=== PATIENT | female | born 1950 | race Caucasian/White ===

== ENCOUNTER 2019-03-04 13:47 | Inpatient (IN) | payer BC, OTHER ==
[2019-03-04] MEDS ORDERED: Senna TAB 8.6 mg* TAB PO PRN (16:45)
[2019-03-04] MEDS: oxyCODONE/Acetamin 5/325 MG* TAB PO PRN ×2 (17:35→21:31)
[2019-03-04] MEDS: Docusate CAP* 100 MG PO SCH (19:34)
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
[2019-03-04] MEDS: Enoxaparin(*) 40 MG/0.4 ML SYR SUBCUT SCH (21:32)
[2019-03-05] MEDS: Acetaminophen TAB* 325 MG PO PRN ×2 (00:14→13:09)
[2019-03-05] MEDS: oxyCODONE/Acetamin 5/325 MG* TAB PO PRN ×4 (02:19→15:10)
[2019-03-05 05:35] LABS: Hematocrit 31 % (35-47); Hemoglobin 10.5 g/dL (12.0-16.0); Mean Corpuscular HGB Conc 34 g/dL (31-36); Mean Corpuscular Hemoglobin 30 pg (27-31); Mean Corpuscular Volume 89 fL (80-97); Mean Platelet Volume 8.1 fL (7.4-10.4); Platelet Count 246 10^3/uL (150-450); Red Blood Count 3.51 10^6 /uL (3.70-4.87); Red Cell Distribution Width 15 % (10-15); White Blood Count 8.1 10^3/uL (3.5-10.8)
[2019-03-05 05:55] LABS: Albumin 3.7 g/dL (3.2-5.2); Albumin/Globulin Ratio 1.5 (1-3); BUN/Creatinine Ratio 26.9 (8-20); EGFR African American 89.4 (>60); EGFR Non-African American 73.9 (>60); Globulin 2.5 g/dL (2-4); Potassium 4.2 mmol/L (3.5-5.0); Total Bilirubin 0.8 mg/dL (0.2-1.0); Total Protein 6.2 g/dL (6.4-8.9)
[2019-03-05 07:01] LABS: ABS Basophils 0.1 10^3/ul (0-0.2); ABS Eosinophils 0.1 10^3/ul (0-0.6); ABS Lymphocytes 1.2 10^3/ul (1.0-4.8); ABS Monocytes 0.8 10^3/ul (0-0.8); ABS Neutrophils 5.8 10^3/ul (1.5-7.7); Eosinophil % 1.4 %; Lymphocyte % 15.2 %
[2019-03-05] MEDS: BuPROPion XL* 300 MG TAB.XL PO SCH (09:30)
[2019-03-05] MEDS: FLUoxetine CAP* 20 MG PO SCH (09:30)
[2019-03-05] MEDS: Docusate CAP* 100 MG PO SCH ×2 (09:31→19:59)
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
[2019-03-05] MEDS ORDERED: oxyCODONE TAB* 5 MG TAB PO PRN (19:32)
[2019-03-05] MEDS: oxyCODONE TAB* 5 MG TAB PO PRN ×2 (19:58→23:51)
[2019-03-05] MEDS: Enoxaparin(*) 40 MG/0.4 ML SYR SUBCUT SCH (19:59)
[2019-03-06] MEDS: oxyCODONE TAB* 5 MG TAB PO PRN ×4 (04:13→19:54)
[2019-03-06] MEDS: Docusate CAP* 100 MG PO SCH ×2 (09:36→19:59)
[2019-03-06] MEDS: FLUoxetine CAP* 20 MG PO SCH (09:36)
[2019-03-06] MEDS: BuPROPion XL* 300 MG TAB.XL PO SCH (09:36)
[2019-03-06] MEDS: Acetaminophen TAB* 325 MG PO PRN ×2 (12:19→23:15)
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
[2019-03-06] MEDS: Enoxaparin(*) 40 MG/0.4 ML SYR SUBCUT SCH (19:58)
[2019-03-07] MEDS: oxyCODONE TAB* 5 MG TAB PO PRN ×6 (01:10→22:22)
[2019-03-07] MEDS: FLUoxetine CAP* 20 MG PO SCH (08:46)
[2019-03-07] MEDS: Acetaminophen TAB* 325 MG PO PRN ×2 (08:46→16:20)
[2019-03-07] MEDS: BuPROPion XL* 300 MG TAB.XL PO SCH (08:47)
[2019-03-07] MEDS: Docusate CAP* 100 MG PO SCH ×2 (08:48→21:54)
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
[2019-03-07] MEDS: Enoxaparin(*) 40 MG/0.4 ML SYR SUBCUT SCH (21:53)
[2019-03-08] MEDS: oxyCODONE TAB* 5 MG TAB PO PRN ×5 (02:21→20:53)
[2019-03-08] MEDS: Acetaminophen TAB* 325 MG PO PRN ×2 (06:18→14:38)
[2019-03-08] MEDS: Docusate CAP* 100 MG PO SCH ×2 (08:19→20:54)
[2019-03-08] MEDS: BuPROPion XL* 300 MG TAB.XL PO SCH (08:21)
[2019-03-08] MEDS: FLUoxetine CAP* 20 MG PO SCH (08:26)
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
[2019-03-08] MEDS: Enoxaparin(*) 40 MG/0.4 ML SYR SUBCUT SCH (20:56)
[2019-03-09] MEDS: Acetaminophen TAB* 325 MG PO PRN ×3 (00:09→15:22)
[2019-03-09] MEDS: oxyCODONE TAB* 5 MG TAB PO PRN ×6 (01:08→21:19)
[2019-03-09] MEDS: Docusate CAP* 100 MG PO SCH ×2 (08:20→21:15)
[2019-03-09] MEDS: BuPROPion XL* 300 MG TAB.XL PO SCH (08:20)
[2019-03-09] MEDS: FLUoxetine CAP* 20 MG PO SCH (08:21)
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
[2019-03-09] MEDS: Polyethylene Glycol 3350* 17 GM PACKET PO PRN (12:00)
[2019-03-09] MEDS: Senna TAB 8.6 mg* TAB PO SCH (21:16)
[2019-03-09] MEDS: Enoxaparin(*) 40 MG/0.4 ML SYR SUBCUT SCH (21:24)
[2019-03-09] MEDS: oxyCODONE SR TAB(*) 15 MG TAB.SR PO SCH (22:01)
[2019-03-10] MEDS: oxyCODONE TAB* 5 MG TAB PO PRN ×7 (00:13→20:15)
[2019-03-10] MEDS: Acetaminophen TAB* 325 MG PO PRN ×2 (05:11→18:19)
[2019-03-10] MEDS: oxyCODONE SR TAB(*) 15 MG TAB.SR PO SCH ×2 (09:12→21:46)
[2019-03-10] MEDS: BuPROPion XL* 300 MG TAB.XL PO SCH (09:12)
[2019-03-10] MEDS: FLUoxetine CAP* 20 MG PO SCH (09:12)
[2019-03-10] MEDS: Docusate CAP* 100 MG PO SCH ×2 (09:12→21:47)
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
[2019-03-10] MEDS ORDERED: Al Hydrox/Mg Hydrox/Simet LIQ* 30 ML UDC PO PRN (13:18)
[2019-03-10] MEDS: Calcium Carbonate CHEW TAB* 500 MG (TUMS) PO PRN (13:36)
[2019-03-10] MEDS: Enoxaparin(*) 40 MG/0.4 ML SYR SUBCUT SCH (21:45)
[2019-03-10] MEDS: Senna TAB 8.6 mg* TAB PO SCH (21:47)
[2019-03-11] MEDS: oxyCODONE TAB* 5 MG TAB PO PRN ×6 (03:00→22:33)
[2019-03-11] MEDS: oxyCODONE SR TAB(*) 15 MG TAB.SR PO SCH ×2 (08:45→20:50)
[2019-03-11] MEDS: BuPROPion XL* 300 MG TAB.XL PO SCH (08:45)
[2019-03-11] MEDS: FLUoxetine CAP* 20 MG PO SCH (08:45)
[2019-03-11] MEDS: Docusate CAP* 100 MG PO SCH ×2 (08:45→20:50)
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
[2019-03-11] MEDS: Acetaminophen TAB* 325 MG PO PRN (16:06)
[2019-03-11] MEDS: Polyethylene Glycol 3350* 17 GM PACKET PO PRN (16:27)
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
[2019-03-11] MEDS: Senna TAB 8.6 mg* TAB PO SCH (20:50)
[2019-03-11] MEDS: Enoxaparin(*) 40 MG/0.4 ML SYR SUBCUT SCH (20:50)
[2019-03-12] MEDS: oxyCODONE TAB* 5 MG TAB PO PRN ×6 (02:10→20:17)
[2019-03-12 04:47] LABS: ABS Basophils 0.1 10^3/ul (0-0.2); ABS Eosinophils 0.1 10^3/ul (0-0.6); ABS Monocytes 0.5 10^3/ul (0-0.8); ABS Neutrophils 2.9 10^3/ul (1.5-7.7); Eosinophil % 1.8 %; Hematocrit 29 % (35-47); Lymphocyte % 21.8 %; Mean Corpuscular HGB Conc 35 g/dL (31-36); Mean Corpuscular Hemoglobin 31 pg (27-31); Mean Corpuscular Volume 90 fL (80-97); Mean Platelet Volume 7.6 fL (7.4-10.4); Nucleated Red Blood Cells % 0.1; Platelet Count 263 10^3/uL (150-450); Red Blood Count 3.21 10^6 /uL (3.70-4.87); Red Cell Distribution Width 16 % (10-15); White Blood Count 4.4 10^3/uL (3.5-10.8)
[2019-03-12 05:07] LABS: Albumin 3.4 g/dL (3.2-5.2); Albumin/Globulin Ratio 1.4 (1-3); BUN/Creatinine Ratio 22.2 (8-20); Calcium 8.7 mg/dL (8.6-10.3); EGFR African American 98.1 (>60); Globulin 2.5 g/dL (2-4); Potassium 4.5 mmol/L (3.5-5.0); Total Bilirubin 0.7 mg/dL (0.2-1.0); Total Protein 5.9 g/dL (6.4-8.9)
[2019-03-12] MEDS: Docusate CAP* 100 MG PO SCH ×2 (08:39→20:16)
[2019-03-12] MEDS: oxyCODONE SR TAB(*) 15 MG TAB.SR PO SCH (08:39)
[2019-03-12] MEDS: FLUoxetine CAP* 20 MG PO SCH (08:39)
[2019-03-12] MEDS: Methocarbamol TAB* 500 MG PO PRN ×2 (08:40→14:41)
[2019-03-12] MEDS: BuPROPion XL* 300 MG TAB.XL PO SCH (09:27)
[2019-03-12] MEDS: Senna TAB 8.6 mg* TAB PO SCH (20:17)
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
[2019-03-12] MEDS: oxyCODONE SR TAB(*) 20 MG TAB.SR PO SCH (20:18)
[2019-03-12] MEDS: Nortriptyline CAP* 10 MG PO SCH (20:19)
[2019-03-12] MEDS: Enoxaparin(*) 40 MG/0.4 ML SYR SUBCUT SCH (20:20)
[2019-03-13] MEDS: oxyCODONE TAB* 5 MG TAB PO PRN ×4 (01:56→11:52)
[2019-03-13] MEDS: oxyCODONE SR TAB(*) 20 MG TAB.SR PO SCH ×2 (09:18→21:06)
[2019-03-13] MEDS: BuPROPion XL* 300 MG TAB.XL PO SCH (09:18)
[2019-03-13] MEDS: FLUoxetine CAP* 20 MG PO SCH (09:18)
[2019-03-13] MEDS: Docusate CAP* 100 MG PO SCH ×2 (09:18→21:06)
[2019-03-13] MEDS: Methocarbamol TAB* 500 MG PO PRN ×2 (11:10→21:25)
[2019-03-13] MEDS: Acetaminophen TAB* 325 MG PO PRN (11:53)
[2019-03-13] MEDS ORDERED: Magnesium Hydroxide LIQ* 30 ML UDC PO ONE (21:00)
[2019-03-13] MEDS ORDERED: Magnesium Hydroxide LIQ* 30 ML UDC PO PRN (21:00)
[2019-03-13] MEDS: Nortriptyline CAP* 10 MG PO SCH (21:06)
[2019-03-13] MEDS: Senna TAB 8.6 mg* TAB PO SCH (21:06)
[2019-03-13] MEDS: Enoxaparin(*) 40 MG/0.4 ML SYR SUBCUT SCH (21:07)
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
[2019-03-13] MEDS: Cephalexin CAP* 500 MG PO SCH (21:25)
[2019-03-14] MEDS: Cephalexin CAP* 500 MG PO SCH ×3 (03:48→20:57)
[2019-03-14] MEDS: oxyCODONE TAB* 5 MG TAB PO PRN ×6 (03:48→20:57)
[2019-03-14] MEDS: Acetaminophen TAB* 325 MG PO PRN (07:42)
[2019-03-14] MEDS: Docusate CAP* 100 MG PO SCH ×2 (10:06→20:57)
[2019-03-14] MEDS: BuPROPion XL* 300 MG TAB.XL PO SCH (10:06)
[2019-03-14] MEDS: oxyCODONE SR TAB(*) 20 MG TAB.SR PO SCH ×2 (10:07→20:59)
[2019-03-14] MEDS: FLUoxetine CAP* 20 MG PO SCH (10:08)
[2019-03-14] MEDS: Polyethylene Glycol 3350* 17 GM PACKET PO SCH (10:08)
[2019-03-14] MEDS: Methocarbamol TAB* 500 MG PO PRN (16:18)
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
[2019-03-14] MEDS ORDERED: Sodium Phosphate ADULT ENEMA* 118 ml bottle PR PRN (19:03)
[2019-03-14] MEDS: Nortriptyline CAP* 10 MG PO SCH (20:57)
[2019-03-14] MEDS: Senna TAB 8.6 mg* TAB PO SCH (20:58)
[2019-03-14] MEDS: Enoxaparin(*) 40 MG/0.4 ML SYR SUBCUT SCH (21:00)
[2019-03-15] MEDS: oxyCODONE TAB* 5 MG TAB PO PRN ×5 (02:54→21:30)
[2019-03-15] MEDS: Cephalexin CAP* 500 MG PO SCH ×3 (06:12→21:23)
[2019-03-15] MEDS: BuPROPion XL* 300 MG TAB.XL PO SCH (09:25)
[2019-03-15] MEDS: FLUoxetine CAP* 20 MG PO SCH (09:25)
[2019-03-15] MEDS: oxyCODONE SR TAB(*) 20 MG TAB.SR PO SCH ×2 (09:25→21:22)
[2019-03-15] MEDS: Polyethylene Glycol 3350* 17 GM PACKET PO SCH (09:25)
[2019-03-15] MEDS: Docusate CAP* 100 MG PO SCH ×2 (09:25→21:23)
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
[2019-03-15] MEDS: Methocarbamol TAB* 500 MG PO PRN (15:05)
[2019-03-15] MEDS: Bisacodyl SUPP* 10 MG SUPP PR PRN (17:30)
[2019-03-15] MEDS: Senna TAB 8.6 mg* TAB PO SCH (21:23)
[2019-03-15] MEDS: Nortriptyline CAP* 10 MG PO SCH (21:23)
[2019-03-15] MEDS: Enoxaparin(*) 40 MG/0.4 ML SYR SUBCUT SCH (21:23)
[2019-03-16] MEDS: oxyCODONE TAB* 5 MG TAB PO PRN ×5 (03:30→18:58)
[2019-03-16] MEDS: Cephalexin CAP* 500 MG PO SCH ×3 (04:55→21:17)
[2019-03-16] MEDS: Docusate CAP* 100 MG PO SCH ×2 (09:53→21:17)
[2019-03-16] MEDS: FLUoxetine CAP* 20 MG PO SCH (09:53)
[2019-03-16] MEDS: oxyCODONE SR TAB(*) 20 MG TAB.SR PO SCH ×2 (09:53→21:17)
[2019-03-16] MEDS: BuPROPion XL* 300 MG TAB.XL PO SCH (09:53)
[2019-03-16] MEDS: Polyethylene Glycol 3350* 17 GM PACKET PO SCH (09:54)
[2019-03-16] MEDS: Methocarbamol TAB* 500 MG PO PRN (10:00)
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
[2019-03-16] MEDS: Senna TAB 8.6 mg* TAB PO SCH (21:17)
[2019-03-16] MEDS: Enoxaparin(*) 40 MG/0.4 ML SYR SUBCUT SCH (21:17)
[2019-03-16] MEDS: Nortriptyline CAP* 10 MG PO SCH (21:17)
[2019-03-17] MEDS: oxyCODONE TAB* 5 MG TAB PO PRN ×6 (05:18→21:09)
[2019-03-17] MEDS: Cephalexin CAP* 500 MG PO SCH ×3 (05:18→20:54)
[2019-03-17] MEDS: FLUoxetine CAP* 20 MG PO SCH (08:01)
[2019-03-17] MEDS: Acetaminophen TAB* 325 MG PO PRN (08:02)
[2019-03-17] MEDS: oxyCODONE SR TAB(*) 20 MG TAB.SR PO SCH ×2 (08:03→20:58)
[2019-03-17] MEDS: Docusate CAP* 100 MG PO SCH ×2 (08:03→20:55)
[2019-03-17] MEDS: BuPROPion XL* 300 MG TAB.XL PO SCH (08:03)
[2019-03-17] MEDS: Polyethylene Glycol 3350* 17 GM PACKET PO SCH (08:08)
[2019-03-17] MEDS: Methocarbamol TAB* 500 MG PO PRN (16:50)
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
[2019-03-17] MEDS: Enoxaparin(*) 40 MG/0.4 ML SYR SUBCUT SCH (20:53)
[2019-03-17] MEDS: Nortriptyline CAP* 10 MG PO SCH (20:58)
[2019-03-17] MEDS: Senna TAB 8.6 mg* TAB PO SCH (20:58)
[2019-03-18] MEDS: Cephalexin CAP* 500 MG PO SCH ×3 (04:56→20:19)
[2019-03-18] MEDS: oxyCODONE TAB* 5 MG TAB PO PRN ×4 (04:56→19:28)
[2019-03-18] MEDS: BuPROPion XL* 300 MG TAB.XL PO SCH (08:02)
[2019-03-18] MEDS: FLUoxetine CAP* 20 MG PO SCH (08:02)
[2019-03-18] MEDS: oxyCODONE SR TAB(*) 20 MG TAB.SR PO SCH ×2 (08:02→20:19)
[2019-03-18] MEDS: Docusate CAP* 100 MG PO SCH ×2 (08:02→20:19)
[2019-03-18] MEDS: Polyethylene Glycol 3350* 17 GM PACKET PO SCH (08:04)
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
[2019-03-18] MEDS: Nortriptyline CAP* 10 MG PO SCH (20:19)
[2019-03-18] MEDS: Senna TAB 8.6 mg* TAB PO SCH (20:19)
[2019-03-18] MEDS: Enoxaparin(*) 40 MG/0.4 ML SYR SUBCUT SCH (20:19)
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
[2019-03-19] MEDS: oxyCODONE TAB* 5 MG TAB PO PRN ×3 (03:53→15:08)
[2019-03-19] MEDS: Cephalexin CAP* 500 MG PO SCH ×3 (03:54→20:38)
[2019-03-19 06:42] LABS: ABS Eosinophils 0.1 10^3/ul (0-0.6); ABS Lymphocytes 0.8 10^3/ul (1.0-4.8); ABS Monocytes 0.3 10^3/ul (0-0.8); ABS Neutrophils 1.8 10^3/ul (1.5-7.7); Eosinophil % 2.5 %; Hematocrit 30 % (35-47); Hemoglobin 10.4 g/dL (12.0-16.0); Lymphocyte % 26.3 %; Mean Corpuscular HGB Conc 34 g/dL (31-36); Mean Corpuscular Hemoglobin 31 pg (27-31); Mean Corpuscular Volume 91 fL (80-97); Nucleated Red Blood Cells % 0.1; Platelet Count 180 10^3/uL (150-450); Red Blood Count 3.35 10^6 /uL (3.70-4.87); Red Cell Distribution Width 17 % (10-15); White Blood Count 3.1 10^3/uL (3.5-10.8)
[2019-03-19 06:55] LABS: Albumin 3.4 g/dL (3.2-5.2); Albumin/Globulin Ratio 1.6 (1-3); BUN/Creatinine Ratio 22.2 (8-20); Calcium 8.7 mg/dL (8.6-10.3); EGFR African American 98.1 (>60); Globulin 2.1 g/dL (2-4); Potassium 4.2 mmol/L (3.5-5.0); Total Bilirubin 0.7 mg/dL (0.2-1.0); Total Protein 5.5 g/dL (6.4-8.9)
[2019-03-19] MEDS: Acetaminophen TAB* 325 MG PO PRN (08:07)
[2019-03-19] MEDS: Docusate CAP* 100 MG PO SCH ×2 (08:07→20:38)
[2019-03-19] MEDS: BuPROPion XL* 300 MG TAB.XL PO SCH (08:07)
[2019-03-19] MEDS: Polyethylene Glycol 3350* 17 GM PACKET PO SCH (08:08)
[2019-03-19] MEDS: oxyCODONE SR TAB(*) 20 MG TAB.SR PO SCH ×2 (08:08→20:38)
[2019-03-19] MEDS: FLUoxetine CAP* 20 MG PO SCH (08:09)
[2019-03-19] MEDS: Methocarbamol TAB* 500 MG PO PRN (12:53)
[2019-03-19] MEDS: Nortriptyline CAP* 10 MG PO SCH (20:38)
[2019-03-19] MEDS: Senna TAB 8.6 mg* TAB PO SCH (20:38)
[2019-03-19] MEDS: Enoxaparin(*) 40 MG/0.4 ML SYR SUBCUT SCH (20:38)
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
[2019-03-20] MEDS: oxyCODONE TAB* 5 MG TAB PO PRN ×6 (04:30→21:49)
[2019-03-20] MEDS: Cephalexin CAP* 500 MG PO SCH ×3 (04:30→20:58)
[2019-03-20] MEDS: Docusate CAP* 100 MG PO SCH ×2 (07:40→20:58)
[2019-03-20] MEDS: Polyethylene Glycol 3350* 17 GM PACKET PO SCH (07:40)
[2019-03-20] MEDS: FLUoxetine CAP* 20 MG PO SCH (07:40)
[2019-03-20] MEDS: BuPROPion XL* 300 MG TAB.XL PO SCH (07:41)
[2019-03-20] MEDS: oxyCODONE SR TAB(*) 20 MG TAB.SR PO SCH ×2 (07:41→20:58)
[2019-03-20] MEDS: Calcium Carbonate CHEW TAB* 500 MG (TUMS) PO PRN (08:32)
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
[2019-03-20] MEDS: Enoxaparin(*) 40 MG/0.4 ML SYR SUBCUT SCH (20:58)
[2019-03-20] MEDS: Nortriptyline CAP* 10 MG PO SCH (20:58)
[2019-03-20] MEDS: Senna TAB 8.6 mg* TAB PO SCH (20:58)
[2019-03-20] MEDS: Methocarbamol TAB* 500 MG PO PRN (21:54)
[2019-03-21] MEDS: oxyCODONE TAB* 5 MG TAB PO PRN ×3 (07:44→17:59)
[2019-03-21] MEDS: Docusate CAP* 100 MG PO SCH ×2 (07:46→20:57)
[2019-03-21] MEDS: FLUoxetine CAP* 20 MG PO SCH (07:46)
[2019-03-21] MEDS: BuPROPion XL* 300 MG TAB.XL PO SCH (07:46)
[2019-03-21] MEDS: Polyethylene Glycol 3350* 17 GM PACKET PO SCH (07:48)
[2019-03-21] MEDS: oxyCODONE SR TAB(*) 20 MG TAB.SR PO SCH ×2 (08:57→20:57)
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
[2019-03-21] MEDS: Senna TAB 8.6 mg* TAB PO SCH (20:57)
[2019-03-21] MEDS: Nortriptyline CAP* 10 MG PO SCH (20:57)
[2019-03-21] MEDS: Enoxaparin(*) 40 MG/0.4 ML SYR SUBCUT SCH (20:58)
[2019-03-22] MEDS: oxyCODONE TAB* 5 MG TAB PO PRN ×3 (06:05→19:01)
[2019-03-22] MEDS: BuPROPion XL* 300 MG TAB.XL PO SCH (10:18)
[2019-03-22] MEDS: oxyCODONE SR TAB(*) 20 MG TAB.SR PO SCH ×2 (10:19→20:40)
[2019-03-22] MEDS: FLUoxetine CAP* 20 MG PO SCH (10:19)
[2019-03-22] MEDS: Docusate CAP* 100 MG PO SCH ×2 (10:19→20:39)
[2019-03-22] MEDS: Polyethylene Glycol 3350* 17 GM PACKET PO SCH (10:20)
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
[2019-03-22] MEDS: Methocarbamol TAB* 500 MG PO PRN (14:44)
[2019-03-22] MEDS: Senna TAB 8.6 mg* TAB PO SCH (20:39)
[2019-03-22] MEDS: Nortriptyline CAP* 10 MG PO SCH (20:41)
[2019-03-22] MEDS: Enoxaparin(*) 40 MG/0.4 ML SYR SUBCUT SCH (20:41)
[2019-03-23] MEDS: oxyCODONE TAB* 5 MG TAB PO PRN ×3 (03:52→20:42)
[2019-03-23] MEDS: Polyethylene Glycol 3350* 17 GM PACKET PO SCH (08:30)
[2019-03-23] MEDS: Docusate CAP* 100 MG PO SCH (08:30)
[2019-03-23] MEDS: BuPROPion XL* 300 MG TAB.XL PO SCH (08:37)
[2019-03-23] MEDS: Methocarbamol TAB* 500 MG PO PRN ×2 (08:38→16:58)
[2019-03-23] MEDS: oxyCODONE SR TAB(*) 20 MG TAB.SR PO SCH ×2 (08:38→20:43)
[2019-03-23] MEDS: FLUoxetine CAP* 20 MG PO SCH (08:39)
[2019-03-23] MEDS ORDERED: Polyethylene Glycol 3350* 17 GM PACKET PO PRN (10:03)
[2019-03-23] MEDS ORDERED: Docusate CAP* 100 MG PO PRN (10:03)
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
[2019-03-23] MEDS: Enoxaparin(*) 40 MG/0.4 ML SYR SUBCUT SCH (20:41)
[2019-03-23] MEDS: Senna TAB 8.6 mg* TAB PO SCH (20:43)
[2019-03-23] MEDS: Nortriptyline CAP* 10 MG PO SCH (20:45)
[2019-03-24] MEDS: oxyCODONE SR TAB(*) 20 MG TAB.SR PO SCH ×2 (08:15→22:00)
[2019-03-24] MEDS: oxyCODONE TAB* 5 MG TAB PO PRN ×4 (08:16→22:04)
[2019-03-24] MEDS: BuPROPion XL* 300 MG TAB.XL PO SCH (08:16)
[2019-03-24] MEDS: FLUoxetine CAP* 20 MG PO SCH (08:16)
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
[2019-03-24] MEDS: Senna TAB 8.6 mg* TAB PO SCH (22:00)
[2019-03-24] MEDS: Enoxaparin(*) 40 MG/0.4 ML SYR SUBCUT SCH (22:00)
[2019-03-24] MEDS: Nortriptyline CAP* 10 MG PO SCH (22:00)
[2019-03-25] MEDS: oxyCODONE TAB* 5 MG TAB PO PRN ×4 (04:17→20:09)
[2019-03-25] MEDS: BuPROPion XL* 300 MG TAB.XL PO SCH (08:51)
[2019-03-25] MEDS: FLUoxetine CAP* 20 MG PO SCH (08:51)
[2019-03-25] MEDS: oxyCODONE SR TAB(*) 20 MG TAB.SR PO SCH ×2 (08:52→20:10)
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
[2019-03-25] MEDS: Bisacodyl SUPP* 10 MG SUPP PR PRN (15:13)
[2019-03-25] MEDS: Nortriptyline CAP* 10 MG PO SCH (20:09)
[2019-03-25] MEDS: Enoxaparin(*) 40 MG/0.4 ML SYR SUBCUT SCH (20:09)
[2019-03-25] MEDS: Senna TAB 8.6 mg* TAB PO SCH (20:10)
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
[2019-03-25] MEDS ORDERED: oxyCODONE TAB* 5 MG TAB PO PRN (21:16)
[2019-03-26 05:17] LABS: ABS Eosinophils 0.1 10^3/ul (0-0.6); ABS Lymphocytes 1.2 10^3/ul (1.0-4.8); ABS Monocytes 0.3 10^3/ul (0-0.8); ABS Neutrophils 1.4 10^3/ul (1.5-7.7); Eosinophil % 2.1 %; Hematocrit 29 % (35-47); Hemoglobin 9.9 g/dL (12.0-16.0); Lymphocyte % 40.9 %; Mean Corpuscular HGB Conc 34 g/dL (31-36); Mean Corpuscular Hemoglobin 31 pg (27-31); Mean Corpuscular Volume 92 fL (80-97); Mean Platelet Volume 8.4 fL (7.4-10.4); Nucleated Red Blood Cells % 0.1; Platelet Count 137 10^3/uL (150-450); Red Blood Count 3.16 10^6 /uL (3.70-4.87); Red Cell Distribution Width 17 % (10-15)
[2019-03-26 05:33] LABS: Albumin 3.3 g/dL (3.2-5.2); Albumin/Globulin Ratio 1.7 (1-3); BUN/Creatinine Ratio 20.8 (8-20); Calcium 8.6 mg/dL (8.6-10.3); EGFR African American 98.1 (>60); Globulin 1.9 g/dL (2-4); Potassium 3.9 mmol/L (3.5-5.0); Total Bilirubin 0.5 mg/dL (0.2-1.0); Total Protein 5.2 g/dL (6.4-8.9)
[2019-03-26] MEDS: BuPROPion XL* 300 MG TAB.XL PO SCH (08:33)
[2019-03-26] MEDS: FLUoxetine CAP* 20 MG PO SCH (08:33)
[2019-03-26] MEDS: Calcium Carbonate CHEW TAB* 500 MG (TUMS) PO PRN (08:33)
[2019-03-26] MEDS: oxyCODONE TAB* 5 MG TAB PO PRN ×3 (08:33→16:41)
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
[2019-03-26] MEDS: Acetaminophen TAB* 325 MG PO PRN (16:23)
[2019-03-26] MEDS: Nortriptyline CAP* 10 MG PO SCH (19:49)
[2019-03-26] MEDS: Methocarbamol TAB* 500 MG PO PRN (19:49)
[2019-03-26] MEDS: Enoxaparin(*) 40 MG/0.4 ML SYR SUBCUT SCH (19:50)
[2019-03-26] MEDS: Senna TAB 8.6 mg* TAB PO SCH (19:50)
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
[2019-03-27] MEDS: oxyCODONE TAB* 5 MG TAB PO PRN ×5 (01:52→20:06)
[2019-03-27] MEDS: BuPROPion XL* 300 MG TAB.XL PO SCH (10:33)
[2019-03-27] MEDS: FLUoxetine CAP* 20 MG PO SCH (10:33)
[2019-03-27] MEDS: Calcium Carbonate CHEW TAB* 500 MG (TUMS) PO PRN (10:33)
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
[2019-03-27] MEDS ORDERED: Senna TAB 8.6 mg* TAB PO PRN (11:45)
[2019-03-27] MEDS: Acetaminophen TAB* 325 MG PO PRN (15:32)
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
[2019-03-27] MEDS: Nortriptyline CAP* 10 MG PO SCH (20:06)
[2019-03-27] MEDS: Enoxaparin(*) 40 MG/0.4 ML SYR SUBCUT SCH (20:06)
[2019-03-27] MEDS ORDERED: oxyCODONE SR TAB(*) 10 MG TAB.SR PO SCH (21:00)
[2019-03-28] MEDS: oxyCODONE TAB* 5 MG TAB PO PRN ×3 (04:58→13:32)
[2019-03-28 06:46] VITALS: BP 97/47
[2019-03-28] MEDS: Acetaminophen TAB* 325 MG PO PRN ×2 (07:17→12:13)
[2019-03-28] MEDS: BuPROPion XL* 300 MG TAB.XL PO SCH (09:17)
[2019-03-28] MEDS: FLUoxetine CAP* 20 MG PO SCH (09:17)
[2019-03-28] MEDS ORDERED: Influenza VAC *QUAD* 2019-20* 0.5 ML SYRINGE IM ONE (12:00)
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
== END 2019-03-28 14:00 | disposition home health service (06) | DRG 860 ==
LOC: PMRU 16:16
PROVIDERS: ADMIT Physical Medicine & Rehabilitation; ATTEND Physical Medicine & Rehabilitation
PROC: F07Z5ZZ Bed Mobility Treatment (ICD-10-PCS; principal; 2019-03-04)
PROC: F07Z9ZZ Gait Training/Functional Ambulation Treatment (ICD-10-PCS; 2019-03-04)
PROC: F07Z8ZZ Transfer Training Treatment (ICD-10-PCS; 2019-03-04)
PROC: F07Z4ZZ Wheelchair Mobility Treatment (ICD-10-PCS; 2019-03-04)
PROC: F08Z0ZZ Bathing/Showering Techniques Treatment (ICD-10-PCS; 2019-03-04)
PROC: F08Z1ZZ Dressing Techniques Treatment (ICD-10-PCS; 2019-03-04)
PROC: F08Z3ZZ Feeding/Eating Treatment (ICD-10-PCS; 2019-03-04)
PROC: F08Z4ZZ Home Management Treatment (ICD-10-PCS; 2019-03-04)
PROC: F08Z2ZZ Grooming/Personal Hygiene Treatment (ICD-10-PCS; 2019-03-04)
PROC: F06Z6ZZ Communicative/Cognitive Integration Skills Treatment (ICD-10-PCS; 2019-03-04)
DX: S82.891E Other fracture of right lower leg, subsequent encounter for open fracture type I or II with routine healing (principal); S72.402D Unspecified fracture of lower end of left femur, subsequent encounter for closed fracture with routine healing; S32.402D Unspecified fracture of left acetabulum, subsequent encounter for fracture with routine healing; S32.302D Unspecified fracture of left ilium, subsequent encounter for fracture with routine healing; S52.202D Unspecified fracture of shaft of left ulna, subsequent encounter for closed fracture with routine healing; V49.88XD Car occupant (driver) (passenger) injured in other specified transport accidents, subsequent encounter; S06.6X9D Traumatic subarachnoid hemorrhage with loss of consciousness of unspecified duration, subsequent encounter; F32.9 Major depressive disorder, single episode, unspecified; R41.89 Other symptoms and signs involving cognitive functions and awareness; K59.00 Constipation, unspecified; L53.9 Erythematous condition, unspecified; Z79.1 Long term (current) use of non-steroidal anti-inflammatories (NSAID); Z79.899 Other long term (current) drug therapy
CPT/HCPCS: 36415; 80053; 85025; 90686; A9270-GY; J1650